=== PATIENT | male | born 1975 | race African-American/Black ===

== ENCOUNTER 2019-06-15 07:32 | Emergency (ER) | payer OTHER ==
[2019-06-15 07:46] VITALS: PULSE 69; BMI 25.1
--- NOTE | 2019-06-15 07:56 | PDOC ---
History of Present Illness - General Chief Complaint: Pain Stated Complaint: PAIN History Source: Patient Exam Limitations: No Limitations - History of Present Illness Initial Comments: 06/15/19 07:54 44 yo M left renal transplant (6 years ago), sickle cell trait, HTN, and HLD presents to the emergency department with left scrotum pain that has been ongoing since 5am. Per the patient, it is a 8/10 pain, sharp in nature, non radiating, and denies aggravating or relieving factors. The patient states he has chronic hematuria because of his sickle cell trait but no increase lately. Denies dysuria, urinary frequency, urinary urgency, and urethral discharge. Per the patient, he states he felt nauseous earlier today. Endorses shaving the scrotal area recently. Denies the following: abdominal pain, SOB, chest pain, fevers, chills, constipation, hematochezia, diarrhea, melena, and leg pain/ swelling. Allergies: NKDA Past History - Past Medical History Allergies/Adverse Reactions: Allergies Allergy/AdvReac Type Severity Reaction Status Date / Time No Known Drug Allergies Allergy Verified 06/15/19 07:44 Home Medications: Ambulatory Orders Amlodipine Besylate [Norvasc -] 10 mg PO DAILY 04/27/16 Cholecalciferol (Vitamin D3) [Vitamin D3 -] 1,000 unit PO DAILY 04/27/16 Labetalol HCl 200 mg PO BID 04/27/16 Mycophenolate Mofetil [Cellcept -] 500 mg PO BID 04/27/16 Prednisone 5 mg PO DAILY 04/27/16 Ramipril 10 mg PO DAILY 04/27/16 Simvastatin 20 mg PO HS 04/27/16 Tacrolimus [Prograf] 1 mg PO BID 04/27/16 Oxycodone HCl/Acetaminophen [Percocet 5-325 mg Tablet -] 1 tab PO Q6H PRN #20 tablet MDD 3 04/28/16 levoFLOXacin [Levaquin -] 500 mg PO DAILY #10 tablet 06/15/19 Anemia: No Asthma: No Cancer: No Cardiac Disorders: Yes (heart sx 2 mons ago) CVA: No COPD: No CHF: No Dementia: No Diabetes: No GI Disorders: No Disorders: No HTN: Yes Hypercholesterolemia: No Liver Disease: No Seizures: No Thyroid Disease: No - Surgical History Abdominal Surgery: No Appendectomy: No Cardiac Surgery: Yes (heart surgery as an , no problem since) Cholecystectomy: No Lung Surgery: No Neurologic Surgery: No Orthopedic Surgery: No - Psycho Social/Smoking Cessation Hx Smoking History: Never smoked Hx Alcohol Use: No Drug/Substance Use Hx: No Substance Use Type: None Hx Substance Use Treatment: No Review of Systems - Review of Systems Able to Perform ROS?: Yes Is the patient limited Vietnamese proficient: No Constitutional: No: Chills, Diaphoresis, Fever HEENTM: No: Eye Pain, Ear Pain, Nose Pain, Throat Pain, Mouth Pain Respiratory: No: Cough, Shortness of Breath, SOB with Exertion, Hemoptysis Cardiac (ROS): No: Chest Pain, Lightheadedness, Palpitations, Syncope ABD/GI: No: Nausea, Rectal Bleeding, Vomiting, Tarry Stools : Yes: Testicular Pain (left). No: Burning, Dysuria, Hematuria, Incontinence Musculoskeletal: No: Back Pain, Joint Pain, Neck Pain Integumentary: No: Bruising, Erythema, Lesions Neurological: No: Headache, Numbness, Tingling, Tremors Psychiatric: No: Change in Appetite Endocrine: No: Unexplained Weight Loss Hematologic/Lymphatic: No: Anemia *Physical Exam - Vital Signs Last Vital Signs Temp Pulse Resp BP Pulse Ox 98.8 F 69 18 114/69 100 06/15/19 07:41 06/15/19 07:41 06/15/19 07:41 06/15/19 07:41 06/15/19 07:41 - Physical Exam General Appearance: Yes: Nourished, Appropriately Dressed. No: Apparent Distress, Intoxicated, Obese HEENT: positive: EOMI, MOLINA, Normal Voice, Symmetrical, Pharynx Normal, Hearing Grossly Normal. negative: Pale Conjunctivae, Scleral Icterus (R), Scleral Icterus (L), Muffled/Hoarse voice, Pharyngeal Erythema, Tonsillar Exudate, Tonsillar Erythema, Excessive drooling Neck: positive: Trachea midline, Supple. negative: Tender, Lymphadenopathy (R) , Lymphadenopathy (L), Tender lateral, Tender midline Respiratory/Chest: positive: Lungs Clear, Normal Breath Sounds. negative: Chest Tender, Respiratory Distress, Accessory Muscle Use Cardiovascular: positive: Regular Rhythm, Regular Rate, S1, S2. negative: Systolic Murmur Gastrointestinal/Abdominal: positive: Normal Bowel Sounds, Flat, Soft. negative : Tender Male Genitalia: positive: normal genitalia, epididymus tender, other (testicle tender in the left scrotum. no fluctuance or erythema overlying the area. in normal lie in state. not high riding. atraumatic.). negative: discharge, inguinal hernia Lymphatic: negative: Adenopathy Musculoskeletal: positive: Normal Inspection. negative: CVA Tenderness, Vertebral Tenderness Extremity: positive: Normal Capillary Refill, Normal Inspection, Normal Range of Motion. 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 Initial vitals; Initial Vital Signs Temp Pulse Resp BP Pulse Ox 98.8 F 69 18 114/69 100 06/15/19 07:41 06/15/19 07:41 06/15/19 07:41 06/15/19 07:41 06/15/19 07:41 Work up: ddx: less likely to be torsion given its normal lie in state and no hard to the touch. atraumatic. the patient has tenderness throughout the scrotum with no overlying erythema or fluctuate. likely to be epididymitis with possible orchitis component. will obtain ua, urine culture, gc, and testicular ultrasound. Laboratory Tests 06/15/19 06/15/19 08:30 08:30 Urine Color Yellow Urine Appearance Clear Urine pH 6.5 Ur Specific [place] 1.014 Urine Protein Negative Urine Glucose (UA) Negative Urine Ketones Negative Urine Blood Trace Urine Nitrite Negative Urine Bilirubin Negative Urine Urobilinogen 0.2 Ur Leukocyte Esterase Negative Urine WBC (Auto) 0 Urine RBC (Auto) 4 Urine Casts (Auto) 0 U Epithel Cells (Auto) 0.4 Urine Bacteria (Auto) 1.5 C. trachomatis (LARRY) Negative N. gonorrhoeae (LARRY) Negative testicular US negative for torsion. normal sonogram. Patient given levofloxacin for presumed epididymitis/orchitis. prescription given with recommendation to follow up with PMD within 1 week. Patient discharged. Pain was controlled with tylenol and the patient stated the pain dissipated. Discharge - Discharge Information Problems reviewed: Yes Clinical Impression/Diagnosis: Epididymitis Disposition: HOME - Admission No - Additional Discharge Information Prescriptions: levoFLOXacin [Levaquin -] 500 mg PO DAILY #10 tablet - Follow up/Referral Referrals: Rona Agarwal MD [Primary Care Provider] - - Patient Discharge Instructions Patient Printed Discharge Instructions: DI for Epididymitis, DI for Urinary Tract Infection (UTI), DI for Orchitis Additional Instructions: You were seen in the emergency department for the evaluation of your testicular pain. Please follow up with the primary medical doctor within 1 week after discharge. Please take the antibitoics as prescribed. Please return to the emergency department if you have worsening symptoms or new concerning symptoms. Thank you. - Post Discharge Activity
[2019-06-15] MEDS ORDERED: ACETAMINOPHEN 325 MG TABLET (FP) PO ONE (08:16)
[2019-06-15] MEDS ORDERED: ACETAMINOPHEN 325 MG TABLET (FP) ONE (08:20)
--- NOTE | 2019-06-15 08:30 | PDOC ---
Attending Attestation - Resident Resident Name: Gregory Rodarte - HPI HPI: 06/15/19 08:58 Pt presents to the ED complaining of pain in the L testicle that started at 4 am this AM. Complains of nausea, but denies fever, vomiting or abdominal pain. Denies dysuria or penile discharge. History of renal transpant on immunosupression. - Physicial Exam PE: 06/15/19 09:26 Agree with resident exam. Patient is alert and oriented x 3 and in no acute distress. Abdomen soft, non tender, non distended without guarding or rebound. - Medical Decision Making 06/15/19 09:27 Pt presents to the ED complaining of testicular pain. Differential includes epididimytis, less likely torsion. Will check UA and testicular ultrasound, give pain control.
[2019-06-15 10:27] VITALS: BP 116/76; TEMP 98.6
[2019-06-15 11:00] LABS: EPI CELLS 0.4 /HPF (0-5/HPF); HYALINE CASTS 0 /lpf (0-8); PH,URINE 6.5 (5.0-8.0); URINE APPEARANCE CLEAR; URINE BACTERIA 1.5 /hpf (NEGATIVE); URINE BILIRUBIN NEGATIVE (NEGATIVE); URINE COLOR YELLOW; URINE GLUCOSE (UA) NEGATIVE (NEGATIVE); URINE KETONE NEGATIVE (NEGATIVE); URINE LEUK ESTERASE NEGATIVE (NEGATIVE); URINE NITRITE NEGATIVE (NEGATIVE); URINE PROTEIN NEGATIVE (NEGATIVE); URINE RBC 4 /hpf (0-4); URINE UROBILINOGEN 0.2 mg/dL (0.2-1.0); URINE WBC 0 /hpf (0-5)
== END 2019-06-15 10:31 | disposition home or self-care (01) ==
LOC: JER 07:32
DX: N45.1 Epididymitis (principal); I10 Essential (primary) hypertension; E78.5 Hyperlipidemia, unspecified; D57.3 Sickle-cell trait; Z94.0 Kidney transplant status
CPT/HCPCS: 36415; 76870-TC; 81003; 87086; 87491; 87591; 99282-25